=== PATIENT | male | born 1950 | race Caucasian/White ===

== ENCOUNTER 2017-10-13 13:10 | Observation (INO) | payer MEDICARE, OTHER ==
[~2017-10-13] VITALS: Ht 180.3 cm; Wt 86.6 kg
[2017-10-13] VITALS (9 sets, daily range): BP systolic 106–144; BP diastolic 64–79
--- NOTE | ~2017-10-13 | H ---
[address] [address] HISTORY AND PHYSICAL Name: IVAN CUTLER Room: [address] Jesica Ibarra#: [id number] Admission: 10/13/17 Attend Phys: Enoch Marquez MD Discharge: 10/14/17 Date of : 46 Report #: [id number] THIS REPORT FOR: //name// Please refer to the History and Physical performed in the physician's office. By: [id number] Records Staff HARPER /HEYDI
[2017-10-13 13:48] LABS: HEMATOCRIT 41.9 % (42.0-52.0); HEMOGLOBIN 14.4 gm/dL (14.0-18.0); MCH 32.1 pg (26.0-34.0); MCHC 34.3 g/dL (28.0-37.0); MCV 93.5 fL (80.0-100.0); MPV 7.9 fl. (7.2-11.1); RBC 4.49 mil/uL (4.50-6.00); RDW-CV 13.3 % (10.5-14.5); WBC 10.1 thou/uL (4.0-11.0)
[2017-10-13 13:57] LABS: ANION GAP 10 mmol/L (7-16); BUN 16 mg/dL (7-18); CALCIUM 9.2 mg/dL (8.5-10.1); CHLORIDE 101 mmol/L (98-107); CO2 30 mmol/L (21-32); CREATININE 1.1 mg/dL (0.6-1.3); GLUCOSE 108 mg/dL (70-99); POTASSIUM 4.1 mmol/L (3.5-5.1); SODIUM 141 mmol/L (136-145)
[2017-10-13 13:59] LABS: APTT 29.4 Seconds (25.0-31.3); INR 1.1; PROTIME 10.6 Seconds (9.20-11.50)
[2017-10-13 14:04] LABS: CHOLESTEROL 174 mg/dL (<200); HDL CHOLESTEROL 72 mg/dL (>40); LDL CHOLESTEROL 81 mg/dL (<100); SERUM ASSESSMENT Clear; TC:HDL 2.4 Ratio (Not establshd); TRIGLYCERIDE 106 mg/dL (<150); VLDL 21 mg/dL (<40)
[2017-10-13] MEDS ORDERED: CO Q-10100 MG PO (14:32)
[2017-10-13] MEDS ORDERED: LIPITOR40 MG PO (14:33)
[2017-10-13] MEDS ORDERED: ATENOLOL 50MG T50 M1 PO (14:33)
[2017-10-13] MEDS ORDERED: OSTEO BI-FLEX1 EAC1 PO (14:34)
[2017-10-13] MEDS ORDERED: FLAX SEED OIL1000 MG PO (14:38)
[2017-10-13] MEDS ORDERED: FISH OIL 1,001000 M2 PO (14:40)
[2017-10-13] MEDS ORDERED: ASPIR 8181 MG PO (14:41)
[2017-10-13] MEDS ORDERED: L-LYSINE500 M1 PO (14:43)
[2017-10-13] MEDS ORDERED: GARLIC1000 MG PO (14:48)
--- NOTE | 2017-10-13 18:01 | EKG ---
[place] [address] ELECTROCARDIOGRAM REPORT Name: IVAN CUTLER Room: [place] [address] ADM IN M.R.#: [id number] Admission: 10/13/17 Attend Phys: Enoch Marquez MD Discharge: Date of : 46 Report #: [id number] THIS REPORT FOR: //name// [facility] Test Date: 2017-10-13 Test Time: 13:39:51 Pat Name: IVAN CUTLER Department: Room: [facility] Gender: Latex Spooler: 25 : 1950 Requested By: Akash Gottlieb Order Number: [id number] Emir BOYLE: Akash Gottlieb Measurements Intervals [place] Rate: 63 P: 60 VT: 143 QRS: 80 QRSD: 101 T: 0 QT: 432 QTc: 443 Interpretive Statements Sinus rhythm Inferior infarct, old No previous ECG available for comparison Electronically Signed On 10-13-2017 18:01:21 CDT by Akash Gottlieb [email or web address] <ELECTRONICALLY SIGNED> By: Akash Gottlieb MD, [facility] 10/13/17 1801 1339 1339 Akash Gottlieb MD, FACC /EPI
--- NOTE | 2017-10-13 19:00 | NUR ---
PT ARRIVED ON UNIT APPROX 1805 WITH [employer] NURSING STAFF. TELE MONITOR APPLIED. IV FLUIDS INFUSING ORDERED. A & O X4, ABLE TO COMMUNICATE NEEDS TO STAFF. R GROIN SITE DRSG IS C/D/I. PT WITHOUT C/O PAIN, SOA OR DTHER DISTRESS. VS WNL. SR ON TELE MONITOR. NEEDED ITEMS AND CALL LIGHT WITH REACH.
[2017-10-14] VITALS: BP 128/68
--- NOTE | 2017-10-14 04:53 | NUR ---
ASSUMED OF PT AT 1900 ALERT AND ORIENTED X4 VS AND ASSESSMENT STABLE. R GROIN SURGICAL WOUND CDI NO HEMATOMA, PT NSR.PT LAYED FLAT UNTIL 2300 WILL CONTINUE PALN OF CARE.
[2017-10-14 05:09] LABS: HEMATOCRIT 35.6 % (42.0-52.0); MCH 32.1 pg (26.0-34.0); MCHC 34.8 g/dL (28.0-37.0); MCV 92.2 fL (80.0-100.0); MPV 8.7 fl. (7.2-11.1); RBC 3.86 mil/uL (4.50-6.00); RDW-CV 13.6 % (10.5-14.5)
[2017-10-14 05:12] LABS: HEMOGLOBIN 12.4 gm/dL (14.0-18.0)
[2017-10-14 06:11] LABS: CALCIUM 8.5 mg/dL (8.5-10.1); POTASSIUM 4.2 mmol/L (3.5-5.1)
[2017-10-14 08:00] VITALS: BP 121/58
[2017-10-14 09:27] VITALS: BP 128/68
[2017-10-14 09:48] VITALS: BP 128/68
[2017-10-14 10:10] VITALS: BP 121/58
[2017-10-14] MEDS ORDERED: BRILINTA90 MG PO (10:26)
[2017-10-14] MEDS ORDERED: NITROGLYCERIN0.4 MG SUBLING (10:26)
--- NOTE | 2017-10-14 11:01 | NUR ---
ASSUMED PT CARE AT 0700 PT IS ALERT AND ORIENTED X 4 PT DENIES PAIN OR SOA ON RA, PT IS UP AD LEVAR PT IS NOT A FALL RISK PT RIGHT GROIN SITE CLEAN DRY AND INTACT, PT IS SR ON THE MONITOR, CARDIOLOGY SAW PT AND OK TO DISCHARGE PT IS A CARDIOLOGY PT, IV REMOVED WILL CONTINUE TO MONITOR
--- NOTE | 2017-10-14 15:21 | EKG ---
[place] [address] ELECTROCARDIOGRAM REPORT Name: IVAN CUTLER Room: [address]#: [id number] Admission: 10/13/17 Attend Phys: Enoch Marquez MD Discharge: 10/14/17 Date of : 46 Report #: [id number] THIS REPORT FOR: //name// [facility] Test Date: 2017-10-14 Test Time: 05:48:02 Pat Name: IVAN CUTLER Department: Room: [facility] Gender: M Hogshead Opener: : 1950 Requested By: Akash Gottlieb Order Number: [id number] Emir MD: Akash Gottlieb Measurements Intervals [place] Rate: 66 P: 47 NV: 163 QRS: -11 QRSD: 105 T: 56 QT: 426 QTc: 447 Interpretive Statements Sinus rhythm Abnormal R-wave progression, early transition Compared to ECG 10/13/2017 13:39:51 Myocardial infarct finding no longer present Electronically Signed On 10-14-2017 15:21:24 CDT by Akash Gottlieb [email or web address] <ELECTRONICALLY SIGNED> By: Akash Gottlieb MD, [facility] 10/14/17 1521 0548 0548 Akash Gottlieb MD, [facility] /EPI
--- NOTE | 2017-10-14 17:02 | CARD ---
[address] [address] CARDIAC CATH REPORT Name: IVAN CUTLER Room: [address] MEstefanía#: [id number] Admission: 10/13/17 Attend Phys: Enoch Marquez MD Discharge: 10/14/17 Date of : 46 Report #: [id number] THIS REPORT FOR: //name// APPROVED REPORT Study performed: 10/13/2017 14:55:02 Patient Details Patient Status: OP Room #: The patient is a 67 year-old male Event Personnel Akash Gottlieb Guideman, Liv Anderson RN RN, Lynda Iraheta RTR Monitor, Halley Garcia Evinger, Makenzie RN casino host Performed Art Access - R femoral artery* Left Heart Cath w/LT VGram [id number] LHCLV RAJ Place w/wo Plasty Addl BR DIAG 1 C9601 DESADDL Hemostasis w/ Mynx Indication Unstable angina Risk Factors Family History, Hypercholesterolemia, Hypertension Admission/Lab Medications/Medications given during procedure Angiomax IV 13 ml, Angiomax Drip IV 30.29 ml per hr, Ticagrelor PO 180 mg, Aspirin PO 162 mg Procedure Narrative The patient was brought electively to the Cardiac Catheterization Laboratory and was prepped and draped in a sterile manner. The right femoral was infiltrated with 1% Lidocaine subcutaneous anesthesia. A [place] 6 FR sheath was inserted into the right femoral artery. Coronary angiography was performed using coronary diagnostic catheters. The right coronary system was accessed and visualized with a 6fr jr4 catheter. The left coronary system was accessed and visualized with a 6fr jl4 catheter. The left ventricle was accessed and visualized with a PC: Pig 6fr catheter. Left ventricular/Aortic Valve gradient assessed via catheter pullback. Pre-demployment femoral angiogram was performed . Closure device was deployed with a 6 Fr Mynx. The patient tolerated the procedure well and there were no complications [place] [address] CARDIAC CATH REPORT Name: IVAN CUTLER [address]#: [id number] Admission: 10/13/17 Attend Phys: Enoch Marquez MD Discharge: 10/14/17 Date of : 46 Report #: [id number] Intraoperative Conscious Sedation Sedation start time: 1529 Case end Time: 1644 Fentanyl 50 mcg Versed 2 mg Fluoro Time: 24.3 minutes Dose: DAP 180857 cGycm2 2110 mGy Contrast Type and Amount: Visipaque 485 ml Coronary Angiography The patient's coronary anatomy is right dominant. Diagnostic Cath Left Main 0% narrowing LAD 40% proximal with 30% mid LAD narrowing with 90% heavily calcified stenosis of the first diagonal branch of the LAD Circumflex 80% stenosis of the first marginal branch of the nondominant circumflex with 40% distal circumflex narrowing Right Coronary Large dominant vessel with diffuse calcification and 40% proximal and mid and distal narrowings Left Ventriculography The left ventricle is normal in size with normal contractility. The left ventricular ejection fraction is estimated to be 65%. Left ventricular wall motion abnormalities are not present. There is no mitral insufficiency. Hemodynamics The aortic pressure is 116/55 mmHg with a mean of 67 mmHg. The left ventricular pressure is 129/1 mmHg with a mean of mmHg. The left ventricular end diastolic pressure is 6 mmHg. There was no gradient across the aortic valve upon pullback. PCI Technique Lesion Anticoagulation was achieved with Angiomax. Percutaneous coronary intervention was performed on the first diagnonal branch segment. The lesion stenosis prior to intervention was 95% with ISHA 3 flow. A 6Fr XB 3.5 Guide Catheter was used to engage the ostium. A IG: ProwaterFlex 180CM Interventional Guidewire was used to cross the lesion. BALLOON DILATION A Balloon catheter Mini Trek RX 1.5 X 8 was inserted and inflated up to 6.00atm [place] 10[place]. [place] [address] CARDIAC CATH REPORT Name: IVAN CUTLER Room: [address] Jesica M.R.#: [id number] Admission: 10/13/17 Attend Phys: Enoch Marquez MD Discharge: 10/14/17 Date of : 46 Report #: [id number] STENT DEPLOYMENT A drug-eluting stent Xience Alpine RX 2.25X08 was inserted and inflated up to 10atm for 6seconds. POST STENT DEPLOYMENT BALLOON DILATION A Balloon catheter NC Trek RX 2.25 X 8 was inserted and inflated up to 12.00atm for 10seconds. Final angiography reveals 0 % stenosis with ISHA 3 flow. COMMENTS There was severe calcification of the first diagonal branch requiring extensive predilatation of the 95% stenosis with multiple balloons and a vince wire technique to achieve positioning of the drug-eluting stent Conclusion #1 significant multivessel coronary disease characterized by the following: A 40% proximal and 30% mid LAD narrowing, B 95% heavily calcified stenosis of a prominent first diagonal branch of the LAD, C nondominant circumflex with 80% mid vessel narrowing of the prominent first marginal branch and 40% distal circumflex narrowing, D large dominant right coronary artery with diffuse calcification and 40% proximal mid and distal narrowings #2 normal left ventricular systolic function, estimated ejection fraction being 65% #3 normal left-sided hemodynamics study #4 successful percutaneous coronary intervention with deployment of drug-eluting stent at site of 95% first diagonal stenosis with 0% residual narrowing following stent deployment and ISHA-3 flow to the distal vessel Recommendations [place] [address] CARDIAC CATH REPORT Name: IVAN CUTLER Room: [address] Jesica Ibarra#: [id number] Admission: 10/13/17 Attend Phys: Enoch Marquez MD Discharge: 10/14/17 Date of : 46 Report #: [id number] Aggressive Medical Therapy Medications Administered Aspirin (any) Ticagrelor Diagnostic Cath Approved by: kAash Gottlieb MD Date/Time: 10/14/17 at 1700 hrs. <ELECTRONICALLY SIGNED> By: Akash Gottlieb MD, FAC 10/14/171700 00 00Josakina Gottlieb MD, FACC /INF
--- NOTE | 2017-10-14 17:14 | D ---
[address] [address] DISCHARGE SUMMARY Name: IVAN CUTLER Room: [address] Stacey#: [id number] Admission: 10/13/17 Attend Phys: Enoch Marquez MD Discharge: 10/14/17 Date of : 46 Report #: [id number] THIS REPORT FOR: //name// CC: Russ Marquez DATE OF SERVICE: 10/14/2017 FINAL DISCHARGE DIAGNOSES: 1. Unstable angina. 2. Coronary artery disease. 3. Status post stenting of a high-grade first diagonal stenosis. 4. Bilateral carotid disease. 5. Hyperlipoproteinemia. 6. Hypertension. PROCEDURES: 10/13/2017 -- left heart catheterization, left ventriculography, selective coronary arteriography and percutaneous coronary intervention with deployment of drug-eluting stent at site of 95% heavily calcified first diagonal stenosis. The patient is a very pleasant 67-year-old male with a recent history of chest discomfort and dyspnea on exertion and with episodes of awakening him at night. The latter were particularly bothersome. He has a history of known prior myocardial infarction many years ago. There is a very positive family history of coronary artery disease as well as hypertension, hyperlipoproteinemia. In that context, I performed cardiac catheterization on 10/13/2017, which revealed 95% heavily calcified first diagonal stenosis with moderate stenosis throughout the LAD and right coronary artery. He had an area of approximately 80% calcified stenosis in the first marginal branch of the circumflex. Given the recent clinical scenario and the aforementioned anatomy, I focused on the first diagonal branch, also deploying one 2.25 x 8 mm Xience Alpine drug-eluting stent in the first marginal after extensive lesion preparation requirement for double wiring for final deployment of the stent in the appropriate locus. The patient did well post-procedurally and there was no recurrence of chest discomfort similar to his prior angina during the night or with activity. He ambulated without difficulties; there was good hemostasis at the right femoral [place] [address] DISCHARGE SUMMARY Name: IVAN CUTLER Room: [address] M.R.#: [id number] Admission: 10/13/17 Attend Phys: Enoch Marquez MD Discharge: 10/14/17 Date of : 46 Report #: [id number] Laboratory data on 10/14/2017 revealed sodium of 142, potassium 4.2, BUN 16, creatinine 1.0. Hemoglobin 12.4, white blood cell count 8000 with 221,000 platelets. Cholesterol 174, LDL 81, HDL 72, triglycerides 106 mg percent. The patient was discharged to home in stable condition on 10/14/2017 on the following medications: Aspirin 81 mg daily, atenolol 50 mg daily, atorvastatin 40 mg daily, fish oil 1200 mg daily, flaxseed oil 2000 mg daily, garlic 1000 mg daily, glucosamine 2 tablets daily, lysine 500 mg daily, Coenzyme Q 100 mg daily and Brilinta 90 mg b.i.d. with 180 mg dose given periprocedurally. I plan to see the patient in followup this next week at [facility] office with consideration of staged intervention to the high grade stenosis in the first marginal branch of the circumflex. These issues were discussed with the patient and Dr. Marquez. The patient is discharged to home in stable condition on the aforementioned medications with followup as iterated above. Follow up on 11/30/2017 is at 10:20 hours at [facility] office. <ELECTRONICALLY SIGNED> By: Akash Gottlieb MD, FACC 10/14/17 1714 0931 1038Josakina Gottlieb MD, FACC /nt
== END 2017-10-14 11:34 | disposition home or self-care (01) ==
LOC: M.CL 13:10 → M.2W 17:11 → M.TBA-CV 17:11 → M.2W 18:19
PROVIDERS: Internal Medicine; ADMIT Internal Medicine Cardiovascular Disease
DX: I25.110 Atherosclerotic heart disease of native coronary artery with unstable angina pectoris (principal); I77.9 Disorder of arteries and arterioles, unspecified; I10 Essential (primary) hypertension; E78.2 Mixed hyperlipidemia; J44.9 Chronic obstructive pulmonary disease, unspecified; I25.2 Old myocardial infarction; Z95.5 Presence of coronary angioplasty implant and graft; Z82.49 Family history of ischemic heart disease and other diseases of the circulatory system

== ENCOUNTER 2017-10-27 09:08 | Observation (INO) | payer MEDICARE, OTHER ==
[~2017-10-27] VITALS: Ht 180.3 cm; Wt 85.3 kg
[2017-10-27] VITALS (13 sets, daily range): BP systolic 93–153; BP diastolic 38–72
--- NOTE | ~2017-10-27 | H ---
[address] [address] HISTORY AND PHYSICAL Name: IVAN CUTLER Room: [address] Jesica Ibarra#: [id number] Admission: 10/27/17 Attend Phys: Akash Gottlieb MD, Discharge: 10/28/17 Date of : 46 Report #: [id number] THIS REPORT FOR: //name// Please refer to the History and Physical performed in the physician's office. By: [id number] Records Staff HARPER /HEYDI
[~2017-10-27 09:08] MED LIST: ASPIR 8181 MG PO; ATENOLOL 50MG T50 M1 PO; BRILINTA90 MG PO; CO Q-10100 MG PO; FISH OIL 1,001000 M2 PO; FLAX SEED OIL1000 MG PO; GARLIC1000 MG PO; L-LYSINE500 M1 PO; LIPITOR40 MG PO; NITROGLYCERIN0.4 MG SUBLING; OSTEO BI-FLEX1 EAC1 PO
[2017-10-27 09:37] LABS: HEMATOCRIT 40.6 % (42.0-52.0); HEMOGLOBIN 13.7 gm/dL (14.0-18.0); MCH 31.5 pg (26.0-34.0); MCHC 33.7 g/dL (28.0-37.0); MCV 93.5 fL (80.0-100.0); MPV 8.1 fl. (7.2-11.1); RBC 4.34 mil/uL (4.50-6.00); RDW-CV 13.7 % (10.5-14.5); WBC 8.5 thou/uL (4.0-11.0)
[2017-10-27 09:46] LABS: ANION GAP 9 mmol/L (7-16); BUN 13 mg/dL (7-18); CALCIUM 9.2 mg/dL (8.5-10.1); CHLORIDE 104 mmol/L (98-107); CO2 28 mmol/L (21-32); CREATININE 1.1 mg/dL (0.6-1.3); GLUCOSE 107 mg/dL (70-99); SODIUM 141 mmol/L (136-145)
[2017-10-27 09:48] LABS: APTT 28.2 Seconds (25.0-31.3); INR 1.1; PROTIME 10.3 Seconds (9.20-11.50)
[2017-10-27 09:53] LABS: ALBUMIN 3.9 g/dL (3.4-5.0); ALKALINE PHOSPHATASE 102 U/L (46-116); CHOLESTEROL 142 mg/dL (<200); HDL CHOLESTEROL 62 mg/dL (>40); LDL CHOLESTEROL 55 mg/dL (<100); SERUM ASSESSMENT Clear; SGOT 70 U/L (15-37); SGPT 83 U/L (30-65); TC:HDL 2.3 Ratio (Not establshd); TOTAL BILIRUBIN 0.5 mg/dL (<0.1-1.0); TOTAL PROTEIN 7.8 g/dL (6.4-8.2); TRIGLYCERIDE 129 mg/dL (<150); VLDL 26 mg/dL (<40)
--- NOTE | 2017-10-27 12:40 | NUR ---
PT ARRIVED ON THE UNIT FROM [facility] [employer]. PT HAS A STENT PLACED IN R FOM. ASSESSED PT AND DOCUMENTED. PTS DRSG WAS BLOODY. REMOVED AND NOTED A SMALL OOZE. [facility] [employer] CAME TO FLOOR TO ASSESS PT. NEW DRSG IS CLEAN DRY AND INTACT. PT ON CARDIAC MONITER TRACING SR HR 66. VSS WNL. PT IS AFEBRILE. HE IS ON ROOM AIR. IS AT BEDSIDE. CALL LIGHT IN REACH. WM.
--- NOTE | 2017-10-27 14:10 | NUR ---
CALLED [facility] CARDIAC NURSE. PT C/O CHEST PAIN AND RATED A 5 ON PAIN SCALE. HE C/O PAIN IN HIS ARM. [facility]STO CAME AND SPOKE WITH PT. GAVE 1 SUBLINGUAL NITRO PILL. PT STATED CEST PAIN BETTER BUT ARMS ARE STILL SORE. EKG WAS COMPLETED AND APPEARS FINE. [facility] WILL ROUND ON PT AGAIN.
--- NOTE | 2017-10-27 14:55 | NUR ---
PT STATES PAIN HAS RESOLVED IN CHEST AND ARMS.
--- NOTE | 2017-10-27 16:22 | EKG ---
[place] [address] ELECTROCARDIOGRAM REPORT Name: IVAN CUTLER Room: [address] IN M.R.#: [id number] Admission: 10/27/17 Attend Phys: Akash Gottlieb MD, Discharge: Date of : 46 Report #: [id number] THIS REPORT FOR: //name// [facility] Test Date: 2017-10-27 Test Time: 10:12:16 Pat Name: IVAN CUTLER Department: Room: [facility] Gender: M Fern Gatherer: : 1950 Requested By: Akash Gottlieb Order Number: [id number] Reading MD: Akash Gottlieb Measurements Intervals [place] Rate: 58 P: 52 GA: 158 QRS: -16 QRSD: 100 T: 56 QT: 434 QTc: 427 Interpretive Statements Sinus rhythm Borderline left axis deviation Abnormal R-wave progression, early transition Baseline wander in lead(s) V1,V2 Compared to ECG 10/14/2017 05:48:02 No significant changes Electronically Signed On 10-27-2017 16:22:21 CDT by Akash Gottlieb [email or web address] <ELECTRONICALLY SIGNED> By: Akash Gottlieb MD, [facility] 10/27/17 1622 1012 1012 Akash Gottlieb MD, [facility] /EPI
--- NOTE | 2017-10-27 16:43 | EKG ---
[place] [address] ELECTROCARDIOGRAM REPORT Name: IVAN CUTLER Room: [address] IN M.R.#: [id number] Admission: 10/27/17 Attend Phys: Akash Gottlieb MD, Discharge: Date of : 46 Report #: [id number] THIS REPORT FOR: //name// [facility] Test Date: 2017-10-27 Test Time: 14:05:54 Pat Name: IVAN CUTLER Department: Room: [facility][Note 3] Gender: M Partnership Manager: : 1950 Requested By: Akash Gottlieb Order Number: [id number] Reading MD: Akash Gottlieb Measurements Intervals [place] Rate: 69 P: 60 GA: 162 QRS: 3 QRSD: 101 T: 54 QT: 422 QTc: 452 Interpretive Statements Sinus rhythm Abnormal R-wave progression, early transition Compared to ECG 10/14/2017 05:48:02 No significant changes Electronically Signed On 10-27-2017 16:43:07 CDT by Akash Gottlieb [email or web address] <ELECTRONICALLY SIGNED> By: Akash Gottlieb MD, [facility] 10/27/17 1643 1405 1405 Akash Gottlieb MD, [facility] /EPI
--- NOTE | 2017-10-27 17:19 | NUR ---
PT HAS RESTED FLAT IN BED SINCE RETURNING FROM CARDIOTHORACIC ANESTHESIA TECHNICIAN. PT HAS NO C/O PAIN IN CHEST OR ARMS. POST CATH ASSESSMENT WITH VS COMPLETE PER PROTOCOL. PT HAS HAD A GOOD APPETITE. EDUCATION GIVEN ON DEMAND. HOURLY ROUNDING COMPLETE. DRSG ON R GROIN CLEAN DRY AND INTACT.
[2017-10-28] VITALS: BP 103/53
[2017-10-28 04:00] VITALS: BP 119/74
[2017-10-28 05:04] LABS: MCH 32.1 pg (26.0-34.0); MCHC 34.3 g/dL (28.0-37.0); MCV 93.7 fL (80.0-100.0); MPV 8.8 fl. (7.2-11.1); RBC 3.53 mil/uL (4.50-6.00); RDW-CV 13.7 % (10.5-14.5); WBC 6.2 thou/uL (4.0-11.0)
[2017-10-28 05:06] LABS: HEMOGLOBIN 11.3 gm/dL (14.0-18.0)
[2017-10-28 05:09] LABS: CALCIUM 8.3 mg/dL (8.5-10.1); CREATININE 0.9 mg/dL (0.6-1.3); POTASSIUM 4.5 mmol/L (3.5-5.1); TOTAL BILIRUBIN 0.4 mg/dL (<0.1-1.0); TOTAL PROTEIN 5.7 g/dL (6.4-8.2)
--- NOTE | 2017-10-28 05:11 | NUR ---
PT ALERT ORIENTED. UP OOB AT 1945. R SEVEN DAMON D/I. AMBULATED IN ROOM. TELEMETRY SHOWS SR. VSS. NS AT 100 MLS/HR. TURNED DOWN TO TKO 25MLS/HR AT 0400. WILL CONTINUE TO MONITOR.
[2017-10-28 05:22] LABS: TROPONIN-I LEVEL 0.82 ng/mL (<0.06)
[2017-10-28 07:30] VITALS: BP 118/66
[2017-10-28] MEDS ORDERED: IMDUR 30 MG TAB30 M1 PO (09:14)
[2017-10-28 09:35] VITALS: BP 113/55
--- NOTE | 2017-10-28 11:08 | NUR ---
RECEIVED PATIENT CARE 0700. PATIENT ALERT AND ORIENTED X4. VSS. PHLEBOTOMY SUPPORT TECH TRACING SR. PATIENT DENIES ANY PAIN. NO SOA. O2 SAT 93% ON ROOM AIR. AM ASSESSMENT CHARTED. MEDS GIVEN PER SEP. RECEIVED DISCHARGE ORDERS PER DR HO. IV DISCONTINUED AND PHLEBOTOMY SUPPORT TECH REMOVED AND RETURNED TO NURSE'S DESK. EDUCATED PATIENT ON F/U APPT WITH CARDIOLOGY. EDUCATED TO CONTINUE HIS HOME MEDICATIONS AND CAN READDRESS CONCERNS WITH THEM AT HIS F/U APPT. EDUCATED ON POST CARDIAC CATH ACTIVITY RESTRICTIONS. PATIENT DRESSED. HE DENIES ANY QUESIONS OR CONCERNS AT DISCHARGE. ALL BELONGINGS ARE PACKED AND LEAVING WITH PATIENT. HE IS LEAVING AMBULATORY PER HIS REQUEST ACCOMPANIED BY HIS AND NURSING STAFF.
--- NOTE | 2017-10-28 15:59 | EKG ---
[place] [address] ELECTROCARDIOGRAM REPORT Name: IVAN CUTLER Room: [address] M.R.#: [id number] Admission: 10/27/17 Attend Phys: Akash Gottlieb MD, Discharge: 10/28/17 Date of : 46 Report #: [id number] THIS REPORT FOR: //name// [facility] Test Date: 2017-10-28 Test Time: 08:03:32 Pat Name: IVAN CUTLER Department: Room: [facility] Gender: M Engine Watchman: : 1950 Requested By: Aaksh Gotltieb Order Number: [id number] Emir MD: Akash Gottlieb Measurements Intervals [place] Rate: 65 P: 47 MT: 169 QRS: -16 QRSD: 101 T: 48 QT: 411 QTc: 428 Interpretive Statements Sinus rhythm Borderline left axis deviation Abnormal R-wave progression, early transition Baseline wander in lead(s) V5 Compared to ECG 10/27/2017 14:05:54 No significant changes Electronically Signed On 10-28-2017 15:59:32 CDT by Akash Gottlieb [email or web address] <ELECTRONICALLY SIGNED> By: Akash Gottlieb MD, [facility] 10/28/17 1559 0803 0803 Akash Gottlieb MD, [facility] /EPI
--- NOTE | 2017-10-30 12:08 | CARD ---
[address] [address] CARDIAC CATH REPORT Name: OMAYRAIVAN S Room: [address] M.Seth#: [id number] Admission: 10/27/17 Attend Phys: Akash Gottlieb MD, Discharge: 10/28/17 Date of : 46 Report #: [id number] THIS REPORT FOR: //name// APPROVED REPORT Study performed: 10/27/2017 10:01:17 Patient Details Patient Status: Out-Patient Room #: The patient is a 67 year-old male Event Personnel Akash Gottlieb Crop Consultant, Ladi Lackey RN RN, Lynda Iraheta RTR Monitor, Halley Garcia Langston, Anthony ARRT (R) Monitor Procedures Performed RAJ Place w/wo Plasty Single OM; left heart catheterization and selective coronary angiography Indication Unstable angina Risk Factors Family History, Hypercholesterolemia, Hypertension Previous Procedures/Diagnoses Previous PCI Admission/Lab Medications/Medications given during procedure Aspirin, Platelet Aff. Inhib., Angiomax bolus and infusion Procedure Narrative The patient was brought electively to the Cardiac Catheterization Laboratory and was prepped and draped in a sterile manner. The right femoral was infiltrated with 1% Lidocaine subcutaneous anesthesia. A Scott 6 FR sheath was inserted into the Right Femoral Artery. Coronary angiography was performed using coronary diagnostic catheters. The right coronary system was accessed and visualized with a Diagnostic JR 4 catheter. The left coronary system was accessed and visualized with a Diagnostic JL 4 catheter. The left ventricle was accessed and visualized with a Diagnostic Straight Pig catheter. Left ventricular/Aortic Valve gradient assessed via catheter pullback. Pre-demployment femoral angiogram was performed . Closure device was deployed with a Fr Angioseal STS 6Fr. [place] [address] CARDIAC CATH REPORT Name: OMAYRAIVAN S Room: [address]#: [id number] Admission: 10/27/17 Attend Phys: Akash Gottlieb MD, Discharge: 10/28/17 Date of : 46 Report #: [id number] procedure well and there were no complications associated with the procedure. There was no hematoma. Intraoperative Conscious Sedation Sedation start time: 10:25 Case end Time: 12:12 Fentanyl 125 mcg Versed 5 mg Fluoro Time: 34.3 minutes Dose: DAP 900527 cGycm2 2951 mGy Contrast Type and Amount: Visipaque 340 ml Coronary Angiography The patient's coronary anatomy is right dominant. Diagnostic Cath Left Main 0% narrowing LAD Percent proximal and mid vessel narrowing with 40% proximal first diagonal narrowing before a widely patent first diagonal stent Circumflex 90% stenosis of the prominent first marginal branch of the nondominant circumflex Right Coronary Large dominant vessel with diffuse calcification and 40% proximal mid and distal narrowings Left Ventriculography Left Ventriculography was not performed. IVUS Intravascular Ultrasound was performed on the first obtuse marginal branch segment vessel. IVUS Findings Mini Trek RX 2.0 X 12 Hemodynamics The aortic pressure is 108/53 mmHg with a mean of 74 mmHg. The left ventricular pressure is 103/-8 mmHg with a mean of mmHg. The left ventricular end diastolic pressure is 6 mmHg. There was no gradient across the aortic valve upon pullback. PCI Technique Lesion Anticoagulation was achieved with Angiomax. Patient was preloaded with Angiomax IV 13 ml. Percutaneous coronary intervention was performed on the first obtuse marginal branch segment. The lesion stenosis prior to intervention was 90% with ISHA 3 flow. A 6FR XB 3.5 [place] [address] CARDIAC CATH REPORT Name: IVAN CUTLER [address]: [address]#: [id number] Admission: 10/27/17 Attend Phys: Akash Gottlieb MD, Discharge: 10/28/17 Date of : 46 Report #: [id number] 100CM Guide Catheter was used to engage the ostium. A IG: BMW 300cm Interventional Guidewire was used to cross the lesion. BALLOON DILATION A Balloon catheter Mini Trek RX 1.5 X 8 was inserted and inflated up to 14.00atm for 14seconds. Additional Inflation: 16.00atm for 17seconds. STENT DEPLOYMENT A drug-eluting stent Xience Alpine RX 2.25X12 was inserted and inflated up to 8atm for 15seconds. Final angiography reveals 0 % stenosis with ISHA 3 flow. PCI Technique Lesion Percutaneous coronary intervention was performed on the first obtuse marginal branch segment. BALLOON DILATION A Balloon catheter Mini Trek RX 2.0 X 12 was inserted and inflated up to 17.00atm for 17seconds. Additional Inflation: 18.00atm for 11seconds. PCI Technique Lesion Percutaneous coronary intervention was performed on the first obtuse marginal branch segment. BALLOON DILATION A Balloon catheter NC Trek RX 2.25x12 was inserted and inflated up to 15.00atm for 10seconds. Additional Inflation: 16.00atm for 14seconds. PCI Technique Lesion Percutaneous coronary intervention was performed on the first obtuse marginal branch segment. BALLOON DILATION A Balloon catheter NC Trek RX 2.5 X 12 was inserted and inflated up to 14.00atm for 13seconds. Additional Inflation: 12.00atm for 10seconds. Additional Inflation: 16.00atm for 11seconds. STENT DEPLOYMENT A drug-eluting stent Xience Alpine RX 2.25X12 was inserted and inflated up to 8.00atm for 14seconds. Additional Inflation: 8.00atm [place] 15[place]. [place] [address] CARDIAC CATH REPORT Name: OMAYRAIVAN S Room: [address] Jesica Ibarra#: [id number] Admission: 10/27/17 Attend Phys: Akash Gottlieb MD, Discharge: 10/28/17 Date of : 46 Report #: [id number] Conclusion #1 significant coronary artery disease characterized by the following: A 30% proximal and mid LAD narrowing with 40% ostial first diagonal narrowing followed by a widely patent first diagonal stent B 90% stenosis of the proximal portion of the prominent first marginal branch of the nondominant circumflex C large dominant right coronary artery with diffuse calcification and 40% proximal mid and distal narrowings #2 normal left-sided hemodynamics study #3 successful percutaneous coronary intervention with deployment of a drug-eluting stent at site of 90% calcified first marginal branch circumflex stenosis with 0% residual narrowing following stent deployment and ISHA-3 flow to the distal vessel Recommendations Cardiac Risk Reduction Program Aggressive Medical Therapy Medications Administered Ticagrelor Diagnostic Cath Approved by: Akash Gottlieb MD Date/Time: 10/30/17 at 1206 hours <ELECTRONICALLY SIGNED> By: Akash Gottlieb MD, [facility] 10/30/17 1208 1208 1208Akash Gottlieb MD, FAC /INF
--- NOTE | 2017-10-30 12:25 | D ---
[address] [address] DISCHARGE SUMMARY Name: IVAN CUTLER Room: [address] M.R.#: [id number] Admission: 10/27/17 Attend Phys: Akash Gottlieb MD, Discharge: 10/28/17 Date of : 46 Report #: [id number] THIS REPORT FOR: //name// CC: Russ Marquez MD DATE OF SERVICE: 10/28/2017 FINAL DISCHARGE DIAGNOSES: 1. Unstable angina. 2. Coronary artery disease, status post recent stenting of the first diagonal and stenting of the first marginal branch of the circumflex on 10/27/2017. 3. Hypertension. 4. Hyperlipoproteinemia. 5. Bilateral carotid stenosis. PROCEDURES: 10/27/2017-left heart catheterization, selective coronary arteriography and percutaneous coronary intervention with deployment of drug-eluting stent at site of 90% stenosis in the first marginal branch of the circumflex. The patient is a very pleasant 67-year-old male who presented with unstable angina to Dr. Marquez. In that context, he underwent cardiac catheterization approximately a week ago, which revealed a 90% heavily calcified stenosis of the first diagonal branch of the LAD. I deployed one drug-eluting stent there with difficult as it was heavily calcified. He was also noted to have a high-grade stenosis in the first marginal branch of the circumflex, which is also heavily calcified. There were 40% narrowings throughout the dominant right coronary artery without hemodynamically significant stenosis and no hemodynamically significant stenosis of the left main or apparent LAD. In this setting, I deployed one drug-eluting stent, a 2.25 x 12 mm Xience Alpine drug-eluting stent in the first marginal branch of the circumflex with 0% residual narrowing and ISHA 3 flow of the distal vessel. There was a minimal increase in troponin to 0.82 post-procedurally. There was good hemostasis at the right femoral site of catheterization. Laboratory on 10/28, revealed sodium 145, potassium 4.5, BUN 10, creatinine 0.9, glucose 87. White blood cell count 6200 with hemoglobin 11.3, platelet count of 229,000. Lab revealed a cholesterol 142, HDL 62, LDL of 55 and triglycerides of 129 [place] [address] DISCHARGE SUMMARY Name: ISAIAH CUTLERN Madhuri Room: [address] Jesica Ibarra#: [id number] Admission: 10/27/17 Attend Phys: Akash Gottlieb MD, Discharge: 10/28/17 Date of : 46 Report #: [id number] He was discharged to home on 10/28/2017, on the following medications: Aspirin 81 mg daily, atenolol 50 mg daily, atorvastatin 40 mg daily, fish oil 1200 mg daily, flaxseed oil 2000 mg daily, garlic 1000 mg capsule daily, glucosamine 2 tablets daily, lysine 500 mg daily, ticagrelor or Brilinta 90 mg b.i.d., and coenzyme Q 200 mg daily as well as p.r.n. sublingual nitroglycerin. The patient is scheduled to return to see me in the office on 11/30/2017, as continuing care will be with Dr. Enoch Marquez. <ELECTRONICALLY SIGNED> By: Akash Gottlieb MD, FACC 10/30/17 1225 0942 1013Josakina Gottlieb MD, FAC /nt
== END 2017-10-28 11:11 | disposition home or self-care (01) ==
LOC: M.CL 09:08 → M.2W 12:36
PROVIDERS: ADMIT Internal Medicine
DX: I25.110 Atherosclerotic heart disease of native coronary artery with unstable angina pectoris (principal); I10 Essential (primary) hypertension; E78.5 Hyperlipidemia, unspecified; I65.23 Occlusion and stenosis of bilateral carotid arteries

== ENCOUNTER → 2019-05-09 | Outpatient (CLI) | payer MEDICARE, OTHER ==
[2019-05-09] VITALS (9 sets, daily range): BP systolic 95–158; BP diastolic 56–75
[~2019-05-09] VITALS: Ht 180.3 cm; Wt 84.0 kg
[~2019-05-09] MED LIST changes: +IMDUR 30 MG TAB30 M1 PO
[2019-05-09 09:51] LABS: HEMATOCRIT 41.6 % (42.0-52.0); HEMOGLOBIN 14.2 gm/dL (14.0-18.0); MCH 31.7 pg (26.0-34.0); MCHC 34.2 g/dL (28.0-37.0); MCV 92.7 fL (80.0-100.0); MPV 8.3 fl. (7.2-11.1); RBC 4.48 mil/uL (4.50-6.00); RDW-CV 13.3 % (10.5-14.5); WBC 6.6 thou/uL (4.0-11.0)
[2019-05-09 09:59] LABS: ANION GAP 8 mmol/L (7-16); BUN 18 mg/dL (7-18); CHLORIDE 104 mmol/L (98-107); CO2 30 mmol/L (21-32); CREATININE 1.1 mg/dL (0.6-1.3); GLUCOSE 98 mg/dL (70-99); POTASSIUM 4.1 mmol/L (3.5-5.1); SODIUM 142 mmol/L (136-145)
[2019-05-09 10:00] LABS: APTT 27.9 Seconds (25.0-31.3); PROTIME 10.6 Seconds (9.20-11.50)
[2019-05-09 10:03] LABS: ALBUMIN 3.7 g/dL (3.4-5.0); ALKALINE PHOSPHATASE 92 U/L (46-116); CHOLESTEROL 156 mg/dL (<200); HDL CHOLESTEROL 65 mg/dL (>40); LDL CHOLESTEROL 77 mg/dL (<100); SERUM ASSESSMENT Clear; SGOT 21 U/L (15-37); SGPT 34 U/L (30-65); TC:HDL 2.4 Ratio (Not establshd); TOTAL BILIRUBIN 0.7 mg/dL (<0.1-1.0); TOTAL PROTEIN 7.4 g/dL (6.4-8.2); TRIGLYCERIDE 71 mg/dL (<150); VLDL 14 mg/dL (<40)
--- NOTE | 2019-05-09 16:55 | EKG ---
[place] [address] ELECTROCARDIOGRAM REPORT Name: IVAN CUTLER Room: [facility]#: [id number] Admission: 05/09/19 Attend Phys: Enoch Marquez MD Discharge: Date of : 48 Report #: [id number] THIS REPORT FOR: //name// [facility] Test Date: 2019-05-09 Test Time: 11:08:26 Pat Name: IVAN CUTLER Department: Room: Gender: High Risk Case Manager: : 1950 Requested By: Enoch Marquez Order Number: [id number] Reading MD: Enoch Marquez Measurements Intervals [place] Rate: 57 P: 41 OK: 170 QRS: -16 QRSD: 95 T: 52 QT: 447 QTc: 436 Interpretive Statements Sinus rhythm Borderline left axis deviation Abnormal R-wave progression, early transition Compared to ECG 10/28/2017 08:03:32 No significant changes Electronically Signed On 05-09-2019 16:54:56 CDT by Enoch Marquez [email or web address] <ELECTRONICALLY SIGNED> By: Enoch Marquez MD, [facility] 05/09/19 1654 1108 Enoch Marquez MD, [facility] /EPI
--- NOTE | 2019-05-10 13:40 | CARD ---
[address] [address] CARDIAC CATH REPORT Name: OMAYRAIVANCristiana GRIFFIN Room: [facility].#: [id number] Admission: 05/09/19 Attend Phys: Enoch Marquez MD Discharge: Date of : 46 Report #: [id number] THIS REPORT FOR: //name// APPROVED REPORT Study performed: 05/09/2019 12:15:17 Patient Details The patient is a 68 year-old male Event Personnel Enoch Marquez Complex Manager, Liv Anderson RN Street Light Cleaner, Robel ElliottIS Scrub, Karla Gamble RTR Monitor, Jacque Robertson RN, RN, Dr. Akash Gottlieb Procedures Performed Art Access - R femoral artery Left Heart Cath w/or w/o Coronaries LHC Hemostasis w/ Mynx; FFR calculated pertinent to the proximalmid right and proximal LAD lesions Indication Chest pain Risk Factors Hypercholesterolemia, Hypertension Previous Procedures/Diagnoses Previous PCI Procedure Narrative The patient was brought electively to the Cardiac Catheterization Laboratory and was prepped and draped in a sterile manner. The right femoral was infiltrated with 2% Lidocaine subcutaneous anesthesia. A 6fr Ultimum Sheath sheath was inserted into the right femoral artery. Coronary angiography was performed using coronary diagnostic catheters. The right coronary system was accessed and visualized with a Diagnostic catheter. The left coronary system was accessed and visualized with a Diagnostic catheter. The left ventricle was accessed and visualized with a PIG 6F catheter. Left ventricular/Aortic Valve gradient assessed via catheter pullback. Pre-demployment femoral angiogram was performed . Closure device was deployed with a Fr MynxGrip 6/7F. The patient tolerated the procedure well and there were no complications associated with the procedure. [place] [address] CARDIAC CATH REPORT Name: IVAN CUTLER Room: [facility]#: [id number] Admission: 05/09/19 Attend Phys: Enoch Marquez MD Discharge: Date of : 46 Report #: [id number] Intraoperative Conscious Sedation Sedation start time: 1247 Case end Time: 1333 Fentanyl 100 mcg Versed 5 mg Fluoro Time: 9.0 minutes Dose: DAP 31055 cGycm2 1018 mGy Contrast Type and Amount: Visipaque 200 ml Diagnostic Cath Left Main 0% narrowing LAD 60-70% irregular proximalmid vessel narrowing Circumflex Nondominant vessel with 30% first marginal narrowing Right Coronary Large dominant vessel with diffuse proximalmid vessel disease with 60% proximal and 75% mid vessel narrowing just proximal to the acute margin with 30% distal narrowing Left Ventriculography The left ventricle is normal in size with normal contractility. The left ventricular ejection fraction is estimated to be 65-70%. Left ventricular wall motion abnormalities are not present. There is no mitral insufficiency. IVUS Anticoagulation was achieved with Heparin. IVUS Findings FFR was performed on the proximalmid right coronary artery and proximal LAD; a 6 Cymro R4 guide was utilized to engage the right coronary artery 6 Cymro XB LAD to engage the left with a flow wire inserted both sites.. The patientwas anticoagulated with heparin during the procedure. Hemodynamics The aortic pressure is 99/41 mmHg with a mean of 44 mmHg. The left ventricular pressure is 100/-4 mmHg with a mean of mmHg. The left ventricular end diastolic pressure is 13 mmHg. BALLOON DILATION A Balloon catheter FFR was performed on the proximalmid right coronary artery and proximal LAD; a 6 Cymro R4 guide was utilized to engage the right coronary artery 6 Cymro XB LAD to engage the left with a flow wire inserted both sites.. The patientwas anticoagulated with heparin during the procedure. was inserted and inflated up [place] [address] CARDIAC CATH REPORT Name: IVAN CUTLER Room: [facility]#: [id number] Admission: 05/09/19 Attend Phys: Enoch Marquez MD Discharge: Date of : 46 Report #: [id number] Conclusion #1 Coronary artery disease characterized by following: A 60-70% irregular proximal LAD stenosis B nondominant circumflex with 30% first marginal narrowing C dominant right coronary artery with diffuse proximalmid vessel disease with 60% proximal and 75% mid vessel stenosis #2 normal left ventricular systolic function estimate ejection fraction being 65-70% #3 normal left-sided hemodynamics study #4 fractional flow reserve was performed on the proximalmid right coronary artery and proximal LAD with minimal values of 0.97 and .86 after adenosine provocation, suggesting lack of hemodynamic significance. Recommendations Cardiac Risk Reduction Program Aggressive Medical Therapy Diagnostic Cath Approved by: Enoch Marquez MD Date/Time: 05/10/2019 13:26:47 <ELECTRONICALLY SIGNED> By: Akash Gottlieb MD, [facility] 05/10/19 1340 134 1340Josakina Gottlieb MD, FAC /INF
== END | disposition home or self-care (01) ==
LOC: M.CL 09:07
PROVIDERS: Internal Medicine Cardiovascular Disease
DX: R07.89 Other chest pain (principal); I25.10 Atherosclerotic heart disease of native coronary artery without angina pectoris; E78.5 Hyperlipidemia, unspecified; Z79.01 Long term (current) use of anticoagulants; Z98.890 Other specified postprocedural states; Z87.891 Personal history of nicotine dependence; Z79.899 Other long term (current) drug therapy; Z79.82 Long term (current) use of aspirin; Z88.8 Allergy status to other drugs, medicaments and biological substances

== ENCOUNTER 2020-09-09 10:16 | Observation (INO) | payer MEDICARE, OTHER ==
[~2020-09-09] VITALS: Ht 180.3 cm; Wt 84.4 kg
[2020-09-09 10:19] VITALS: BP 161/64
[2020-09-09 10:35] LABS: ABSOLUTE BASOPHILS 0.1 thou/uL (0.0-0.2); ABSOLUTE EOSINOPHILS 0.3 thou/uL (0.0-0.7); ABSOLUTE LYMPHOCYTES 1.4 thou/uL (0.8-5.3); ABSOLUTE MONOCYTES 0.8 thou/uL (0.0-1.2); ABSOLUTE NEUTROPHILS 4.8 thou/uL (1.6-8.1); BASOPHILS 1.1 %; EOSINOPHILS 3.5 %; HEMATOCRIT 44.1 % (42.0-52.0); HEMOGLOBIN 14.6 gm/dL (14.0-18.0); LYMPHOCYTES 18.8 %; MCHC 33.2 g/dL (28.0-37.0); MCV 93.6 fL (80.0-100.0); MONOCYTES 10.4 %; MPV 8.1 fl. (7.2-11.1); NUCLEATED RBCS 0 /100WBC; PLATELET COUNT* 269 thou/uL (150-400); POLYS 66.2 %; RBC 4.71 mil/uL (4.50-6.00); RDW-CV 12.7 % (10.5-14.5); WBC 7.3 thou/uL (4.0-11.0)
[2020-09-09 10:44] LABS: CALCIUM 9.3 mg/dL (8.5-10.1); CREATININE 1.1 mg/dL (0.6-1.3)
[2020-09-09 10:46] LABS: APTT 26.5 Seconds (25.0-31.3); INR 0.9
[2020-09-09 10:54] LABS: ALBUMIN 3.9 g/dL (3.4-5.0); MAGNESIUM 1.9 mg/dL (1.8-2.4); TOTAL BILIRUBIN 0.4 mg/dL (<0.1-1.0); TOTAL PROTEIN 7.9 g/dL (6.4-8.2)
[2020-09-09 15:42] VITALS: BP 108/56
[2020-09-09 16:23] LABS: CHOLESTEROL 136 mg/dL (<200); HDL CHOLESTEROL 53 mg/dL (>40); LDL CHOLESTEROL 58 mg/dL (<100); TC:HDL 2.6 Ratio (Not establshd); TRIGLYCERIDE 126 mg/dL (<150); VLDL 25 mg/dL (<40)
[2020-09-09 16:24] LABS: SERUM ASSESSMENT CLEAR
--- NOTE | 2020-09-09 17:12 | EKG ---
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
[2020-09-09 17:33] VITALS: BP 108/53
[2020-09-09 18:00] VITALS: BP 127/64
[2020-09-09 20:20] VITALS: BP 126/68
[2020-09-10] VITALS (9 sets, daily range): BP systolic 122–154; BP diastolic 60–70
[2020-09-10 04:38] LABS: ABSOLUTE BASOPHILS 0.1 thou/uL (0.0-0.2); ABSOLUTE EOSINOPHILS 0.3 thou/uL (0.0-0.7); ABSOLUTE MONOCYTES 0.8 thou/uL (0.0-1.2); ABSOLUTE NEUTROPHILS 5.5 thou/uL (1.6-8.1); BASOPHILS 0.8 %; EOSINOPHILS 3.4 %; HEMATOCRIT 37.9 % (42.0-52.0); HEMOGLOBIN 12.9 gm/dL (14.0-18.0); LYMPHOCYTES 23.4 %; MCH 31.5 pg (26.0-34.0); MCHC 34.1 g/dL (28.0-37.0); MCV 92.3 fL (80.0-100.0); MONOCYTES 9.4 %; MPV 8.7 fl. (7.2-11.1); NUCLEATED RBCS 0 /100WBC; PLATELET COUNT* 203 thou/uL (150-400); RBC 4.11 mil/uL (4.50-6.00); RDW-CV 13.1 % (10.5-14.5); WBC 8.7 thou/uL (4.0-11.0)
[2020-09-10 05:13] LABS: CALCIUM 8.8 mg/dL (8.5-10.1); CREATININE 1.3 mg/dL (0.6-1.3); POTASSIUM 3.9 mmol/L (3.5-5.1)
--- NOTE | 2020-09-10 17:22 | CARD ---
[address] [address] CARDIAC CATH REPORT Name: OMAYRAIVANCristiana GRIFFIN Room: [address] IN [facility].#: [id number] Admission: 09/10/20 Attend Phys: Williams Orosco MD Discharge: Date of : 46 Report #: [id number] THIS REPORT FOR: cc: Russ Garcia MD, Douglas L. MD ~ Akash Gottlieb MD [facility] APPROVED REPORT Study performed: 09/10/2020 11:07:40 Patient Details Patient Status: In-Patient Room #: The patient is a 69 year-old male Event Personnel Akash Gottlieb Sample Box Maker, Nancy Marin RN Club Director, Robel Elliott Scrub, Dina Roberto RTR Monitor, Karla Gamble RTR Monitor Procedures Performed Art Access - R femoral artery Left Heart Cath w/or w/o Coronaries RAJ w/Atherectomy Single LAD Hemostasis w/ Angioseal Indication Unstable angina Risk Factors Hypercholesterolemia, Hypertension Previous Procedures/Diagnoses Previous PCI Admission/Lab Medications/Medications given during procedure Oxygen Nasal cannula 2 l per min, Midazolam (Versed) IV 5 mg, Fentanyl IV 100 mcg, Lidocaine Subcut 18 ml, 0.9% Sodium Chloride IV 150 ml per hr, Angiomax IV 13 ml, Angiomax Drip IV 29.52 ml per hr, Aspirin PO 162 mg, Effient PO 60 mg Procedure Narrative The patient was brought urgently to the Cardiac Catheterization Laboratory and was prepped and draped in a sterile manner. The right femoral was infiltrated with 2% Lidocaine subcutaneous anesthesia. A 6 Fr Hackberry sheath was inserted into the right femoral artery. Coronary angiography was performed using [place] [address] CARDIAC CATH REPORT Name: ISAIAH CUTLERCristiana GRIFFIN Room: [address] IN [facility].#: [id number] Admission: 09/10/20 Attend Phys: Williams Orosco MD Discharge: Date of : 46 Report #: [id number] catheters. The right coronary system was accessed and visualized with a Diagnostic 6 Fr JR 4 catheter. The left coronary system was accessed and visualized with a Diagnostic 6 Fr JL 4 catheter. The left ventricle was accessed and visualized with a Diagnostic 6 Fr Pigtail catheter. Left ventricular/Aortic Valve gradient assessed via catheter pullback. Left ventriculogram was performed in BOND projection. Pre-demployment femoral angiogram was performed . Closure device was deployed with a Fr Angioseal STS 6Fr. The patient tolerated the procedure well and there were no complications associated with the procedure. There was no hematoma. Intraoperative Conscious Sedation Sedation start time: 11:51 Case end Time: 13:15 Fentanyl 100 mcg Versed 5 mg Fluoro Time: 23.1 minutes Dose: DAP 154139 cGycm2 2578 mGy Contrast Type and Amount: Visipaque 220 ml Diagnostic Cath Left Main 0% narrowing LAD 90% heavily calcified proximal LAD stenosis with aneurysmal dilatation beyond the stenosis and 75% proximalmid LAD stenosis Circumflex 30% mid vessel narrowing after the takeoff of the first marginal branch Right Coronary Large dominant vessel with 40% proximal mid and distal narrowings Left Ventriculography The left ventricle is normal in size with normal contractility. The left ventricular ejection fraction is estimated to be 65%. Left ventricular wall motion abnormalities are not present. There is no mitral insufficiency. Hemodynamics The aortic pressure is 130/55 mmHg with a mean of 63 mmHg. The left ventricular pressure is 125/-1 mmHg with a mean of mmHg. The left ventricular end diastolic pressure is 15 mmHg. There was no gradient across the aortic valve upon pullback. PCI Technique Lesion Anticoagulation was achieved with Angiomax Drip. Patient was preloaded with Angiomax IV 13 ml. Percutaneous [place] [address] CARDIAC CATH REPORT Name: OMAYRAIVAN Room: [address] IN [facility]#: [id number] Admission: 09/10/20 Attend Phys: Williams Orosco MD Discharge: Date of : 46 Report #: [id number] was performed on the proximal left anterior descending artery segment. The lesion stenosis prior to intervention was 90% with ISHA 3 flow. A 6FR LAUNCHER EBU 4.0 Guide Catheter was used to engage the left ostium. A IG: ProwaterFlex 180CM Interventional Guidewire was used to cross the lesion. BALLOON DILATION A Balloon catheter NC Trek RX 2.75 X 12 was inserted and inflated up to 16.00atm for 12seconds. Additional Inflation: 18.00atm for 7seconds. Additional Inflation: 20.00atm for 5seconds. A balloon catheter NC Trek 3.0 x 12 was inserted and inflated up to 18 KAI for 11 seconds, 18 KAI for 11 seconds, and 20 KAI for 11 seconds. A cutting balloon Angiosculpt PTCA 3.0 x 10mm was inserted and inflated up to 10 KAI for 19 seconds, 12 KAI for 14 seconds, and 8 KAI for 10 seconds. STENT DEPLOYMENT A drug-eluting stent Tony RX Stent 3.0X22mm was inserted and inflated up to 12.00atm for 12seconds. Additional Inflation: 14.00atm for 9seconds. POST STENT DEPLOYMENT BALLOON DILATION A Balloon catheter NC Trek RX 3.0 X 12 was inserted and inflated up to 18.00atm for 13seconds. Final angiography reveals 10 % stenosis with ISHA 2 flow. COMMENTS The PCI was technically complex by virtue of severe calcification of the proximal LAD segment. This required significant lesion preparation including atherotomy/atherectomy priorr to stent deployment. Conclusion 1. Severe coronary artery disease characterized by the following: A 90% heavily calcified very proximal LAD stenosis followed by aneurysmal dilatation and 75% calcified proximalmid vessel narrowing B 30% narrowing in the midportion of the nondominant circumflex C large dominant right coronary artery with 40% proximal mid and distal narrowings [address] [address] CARDIAC CATH REPORT Name: IVAN CUTLER Room: [address] [place] M.R.#: [id number] Admission: 09/10/20 Attend Phys: Williams Orosco MD Discharge: Date of : 46 Report #: [id number] 2. Normal left ventricular systolic function, estimated ejection fraction being 65% 3. Minimal elevation of left ventricular end-diastolic pressure at rest 4. Successful PCI with atherotomy/atherectomy and stenting of the proximal LAD with 10% residual narrowing following stent deployment and ISHA-3 flow to the distal vessel Recommendations Cardiac Risk Reduction Program Aggressive Medical Therapy Medications Administered Aspirin (any) Prasugrel Diagnostic Cath Approved by: Akash Gottlieb MD Date/Time: 09/10/2020 17:21:29 <ELECTRONICALLY SIGNED> By: Akash Gottlieb MD, [facility] 09/10/20 172 21 21Akash Gottlieb MD, FACC /INF
[2020-09-11 00:09] VITALS: BP 135/66
[2020-09-11 04:00] VITALS: BP 124/65
[2020-09-11 04:01] LABS: HEMATOCRIT 36.5 % (42.0-52.0); HEMOGLOBIN 12.4 gm/dL (14.0-18.0); MCH 31.4 pg (26.0-34.0); MCV 92.3 fL (80.0-100.0); MPV 8.4 fl. (7.2-11.1); RBC 3.95 mil/uL (4.50-6.00); RDW-CV 12.9 % (10.5-14.5); WBC 7.9 thou/uL (4.0-11.0)
[2020-09-11 04:28] LABS: CALCIUM 8.4 mg/dL (8.5-10.1); CREATININE 1.1 mg/dL (0.6-1.3); POTASSIUM 3.7 mmol/L (3.5-5.1); TOTAL BILIRUBIN 0.6 mg/dL (<0.1-1.0)
[2020-09-11 05:30] LABS: TROPONIN-I LEVEL 0.74 ng/mL (<0.06)
[2020-09-11 07:39] VITALS: BP 132/55
[2020-09-11] MEDS ORDERED: EFFIENT10 MG PO (09:42)
[2020-09-11 10:38] VITALS: BP 132/55
--- NOTE | 2020-09-11 14:17 | EKG ---
[place] [address] ELECTROCARDIOGRAM REPORT Name: IVAN CUTLER Room: [address] M.R.#: [id number] Admission: 09/09/20 Attend Phys: Williams Orosco, Discharge: 09/11/20 Date of : 46 Date of Service: 09/11/20 0514 Report #: [id number] THIS REPORT FOR: //name// [facility] Test Date: 2020-09-11 Test Time: 05:14:14 Pat Name: IVAN CUTLER Department: Room: [address] Gender: M Furniture Maker: [id number] : 1950 Requested By: Akash Gottlieb Order Number: [id number] Reading MD: Akash Gottlieb Measurements Intervals [place] Rate: 66 P: 48 AR: 165 QRS: 2 QRSD: 104 T: 60 QT: 429 QTc: 450 Interpretive Statements Sinus rhythm Compared to ECG 09/09/2020 10:19:39 No significant changes Electronically Signed On 09-11-2020 14:17:25 GREASE MONKEY by Akash Gottlieb [email or web address] <ELECTRONICALLY SIGNED> By: Akash Gottlieb MD, [facility] 09/11/20 1417 0514 0514 Akash Gottlieb MD, [facility] /EPI
== END 2020-09-11 11:14 | disposition home or self-care (01) ==
LOC: M.ERS 10:16 → M.TBA-ER 11:42 → M.2W 17:35
PROVIDERS: Emergency Medicine Emergency Medical Services; Internal Medicine; Registered Nurse; ADMIT Internal Medicine; ATTEND Internal Medicine
DX: I25.110 Atherosclerotic heart disease of native coronary artery with unstable angina pectoris (principal); E78.5 Hyperlipidemia, unspecified; Z20.828 Contact with and (suspected) exposure to other viral communicable diseases; Z88.5 Allergy status to narcotic agent; Z88.8 Allergy status to other drugs, medicaments and biological substances; Z79.82 Long term (current) use of aspirin; Z79.899 Other long term (current) drug therapy; Z98.890 Other specified postprocedural states; Z87.891 Personal history of nicotine dependence